=== PATIENT | male | born 1980 | race Caucasian/White ===

== ENCOUNTER 2018-06-15 09:34 | Emergency (ER) | payer BC ==
--- NOTE | 2018-06-15 09:44 | PDOC ---
Attending Attestation - Resident Resident Name: KristenAleksandra - ED Attending Attestation I have performed the following: I have examined & evaluated the patient, The case was reviewed & discussed with the resident, I agree w/resident's findings & plan, Exceptions are as noted - HPI HPI: 06/15/18 10:47 Nausea vomiting and diarrhea since 5 AM. Multiple episodes of each. No hematemesis Janneth bloody stool. Intermittent mild abdominal cramping. History of mild IBS on no medication. No abdominal surgery or other GI disease. Has an infant daughter at home with a GI illness. 06/15/18 10:48 - Physicial Exam PE: 06/15/18 10:47 Physical exam: Normal vital signs. Abdomen soft nontender without mass or organomegaly. Skin turgor is good and mucous membranes are wet. Remainder of exam normal - Medical Decision Making 06/15/18 10:48 Assessment: Mild gastroenteritis, probably viral Plan: Routine labs and hydration. Antiemetic. Observation and further treatment depending on results. 06/15/18 11:26 Laboratories reviewed: WBC 12.5 with a left shift. Remainder of CBC, as well as chemistries without significant abnormalities. Patient improved with hydration, antiemetic. No further vomiting or diarrhea. Symptomatic treatment and follow-up if symptoms persist. Fully ambulatory and in no significant distress upon discharge to follow-up as directed
[2018-06-15] MEDS ORDERED: ONDANSETRON 4 MG/2 ML VIAL IVPUSH ONE (09:45)
[2018-06-15] MEDS ORDERED: SODIUM CHLORIDE 1,000 ML IV STA ×2 (09:45→10:49)
[2018-06-15 09:53] VITALS: TEMP 97.9; BMI 26.6
[2018-06-15] MEDS ORDERED: ONDANSETRON 4 MG/2 ML VIAL ONE (10:12)
[2018-06-15 10:20] LABS: HEMATOCRIT 47.5 % (35.4-49); HEMOGLOBIN 16.4 GM/dl (11.7-16.9); MCH 32.6 pg (25.7-33.7); MCHC 34.6 g/dl (32.0-35.9); MEAN CELL VOLUME 94.3 fl (80-96); MEAN PLT VOLUME 7.7 fl (7.5-11.1); PLATELET COUNT 327 K/MM3 (134-434); RBC 5.03 M/mm3 (4.00-5.60); WHITE BLOOD COUNT 12.5 K/mm3 (4.0-10.8)
--- NOTE | 2018-06-15 10:22 | PDOC ---
History of Present Illness - General Chief Complaint: Vomiting/Diarrhea Stated Complaint: VOMITING AND DIARRHEA Time Seen by Provider: 06/15/18 09:44 History Source: Patient Exam Limitations: No Limitations - History of Present Illness Initial Comments: Pt is a 37 yo M, with PMH of IBS, who is presenting with loose brown stool (non- bloody), subjective chills, and 1 episode of NBNB vomiting since 5 am this morning. It has been associated with a crampy abdominal pain, which is not relieved by the passing of BM. Pt states his daughter (10 mos) has also been sick, with frequent "spitting up" and loose stools. Pt denies any fevers, headache, vision changes, chest pain, palpitations, SOB, urinary symptoms, or joint/leg swelling. Pt denies any recent travel or consuming new/raw foods. Pt admits to drinking at least 1 beer per day. Denies cigarettes or drug use. 06/15/18 11:02 Past History - Travel Traveled outside of the country in the last 30 days: No Close contact w/someone who was outside of country & ill: No - Past Medical History Allergies/Adverse Reactions: Allergies Allergy/AdvReac Type Severity Reaction Status Date / Time cefaclor [From Ceclor] Allergy Intermediate Hives Verified 06/15/18 09:44 Penicillins Allergy Intermediate Hives Verified 06/15/18 09:42 Quinolones Allergy Intermediate Hives Verified 06/15/18 09:42 sulfamethoxazole Allergy Intermediate Hives Verified 06/15/18 09:43 [From Bactrim] trimethoprim [From Bactrim] Allergy Intermediate Hives Verified 06/15/18 09:43 Home Medications: Ambulatory Orders Cetirizine HCl [Zyrtec -] 1 tab PO DAILY 06/15/18 Diabetes: No GI Disorders: Yes (IBS) HTN: No Hypercholesterolemia: No - Surgical History Abdominal Surgery: No Review of Systems - Review of Systems Able to Perform ROS?: Yes Is the patient limited Mauritian proficient: No Constitutional: Yes: Chills, Loss of Appetite, Weight Stable. No: Diaphoresis, Fever, Night Sweats, Weakness HEENTM: No: Blurred Vision, Double Vision, Nose Congestion, Hearing Loss, Throat Pain, Throat Swelling, Difficulty Swallowing Respiratory: No: Cough, Orthopnea, Shortness of Breath Cardiac (ROS): No: Chest Pain, Edema, Irregular Heart Rate, Lightheadedness, Palpitations, Syncope, Chest Tightness ABD/GI: Yes: Diarrhea, Nausea, Poor Appetite, Poor Fluid Intake, Vomiting, Abdominal cramping. No: Abdominal Distended, Blood Streaked Bowels, Constipated , Difficulty Swallowing, Rectal Bleeding, Indigestion : No: Burning, Dysuria, Frequency, Hematuria, Pain, Urgency Musculoskeletal: No: Back Pain, Joint Pain, Muscle Pain Integumentary: No: Rash Neurological: No: Headache, Numbness, Seizure, Weakness, Unsteady Gait, Ataxia, Dizziness Psychiatric: No: Sleep Pattern Change, Change in Appetite Endocrine: No: Increased Urine, Change in Weight Hematologic/Lymphatic: No: Anemia, Blood Clots, Easy Bleeding, Easy Bruising All Other Systems: Reviewed and Negative *Physical Exam - Physical Exam General Appearance: Yes: Nourished, Appropriately Dressed, Mild Distress ( Appears uncomfortable, but vitals stable, afebrile) HEENT: positive: EOMI, ZEFERINO, Normal ENT Inspection, Normal Voice, Pharynx Normal , Hearing Grossly Normal. negative: Scleral Icterus (R), Scleral Icterus (L), Pharyngeal Erythema, Tonsillar Exudate, Tonsillar Erythema, Nasal Congestion, Rhinorrhea, Sinus Tenderness, Lesions Neck: positive: Trachea midline, Supple. negative: Tender, Rigid, Lymphadenopathy (R), Lymphadenopathy (L), Rigidity Respiratory/Chest: positive: Lungs Clear, Normal Breath Sounds. negative: Chest Tender, Respiratory Distress, Accessory Muscle Use, Crackles, Wheezing Cardiovascular: positive: Regular Rhythm, Regular Rate, S1, S2. negative: Edema , JVD, Murmur Vascular Pulses: Carotid (R): 4+, Carotid (L): 4+ Gastrointestinal/Abdominal: positive: Normal Bowel Sounds, Flat, Soft. negative : Tender, Organomegaly, Pulsatile Mass, Distended, Guarding, Rebound, Tenderness Rectal Exam: positive: deferred Lymphatic: negative: Adenopathy, Tenderness Musculoskeletal: positive: Normal Inspection. negative: CVA Tenderness Extremity: positive: Normal Capillary Refill, Normal Inspection, Normal Range of Motion, Pelvis Stable. negative: Tender, Delayed Capillary Refill, Pedal Edema Integumentary: positive: Normal Color, Dry, Warm, Moist (no decreased skin turgor). 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 Jean. Pt presenting with loose brown stool (non-bloody) and 1 episode of NBNB vomiting since 5 am this morning. Pt states his daughter (10 mos) has also been sick, with frequent "spitting up" and loose stools. Pt admits to drinking at least 1 beer per day. PE showed stable vitals, afebrile, NAD. No abdominal tenderness to palpation, no rebound, no guarding. Considering viral gastroenteritis vs food poisoning (toxic enteritis) vs appendicitis vs pancreatitis Ordered work-up including CBC, CMP, lipase. Provided 1L NS and 4 mg IV zofran for nausea and dehydration. Will continue to reassess pt and monitor for symptomatic improvement. 06/15/18 09:50 Providing additional 1L NS for dehydration, but pt states starting to feel better. CBC: WBC 12.5, neutrophilic predominance 95%. CMP WNL. 06/15/18 10:59 Provided 20 mg IV pepcid for "stomach burning". Pt improved after interventions and was able to tolerate small fluid challenge in the department. Pt stating feeling much better and is ambulatory. Pt can be discharged to home with follow-up. Pt advised to follow-up with PCP in 1-2 days. Strict return precautions provided with pt understanding. 06/15/18 12:10 *DC/Admit/Observation/Transfer Diagnosis at time of Disposition: Gastroenteritis, Vomiting and diarrhea - Discharge Dispostion Disposition: HOME Condition at time of disposition: Improved Decision to Admit order: No - Referrals Referrals: Fei Barreto [Primary Care Provider] - - Patient Instructions Printed Discharge Instructions: DI for Viral Gastroenteritis -- Adult Additional Instructions: You were seen in the ER today for vomiting and diarrhea. The results of your labs and imaging today showed a mild infection (WBC 12.5), but there is no urgent need for imaging at this time. Please follow-up with your primary care doctor within 1-2 days to discuss your visit and make sure your symptoms have improved. Please return to the ER if you have any worsening pain, development of fevers or chills, loss of consciousness, inability to tolerate food or fluids , or any other concerns. Please continue with a bland diet (gatorade, pedialyte, soup) and frequent hand washing until your symptoms have improved and you can handle solid foods. - Post Discharge Activity
[2018-06-15 10:33] LABS: ALBUMIN 5.1 g/dl (3.5-5.0); ALK PHOS 74 U/L (32-92); ANION GAP 9 MMOL/L (8-16); BILIRUBIN,TOTAL 0.9 mg/dl (0.2-1.0); BLOOD UREA NITROGEN 17 mg/dl (7-18); CALCIUM 9.9 mg/dl (8.4-10.2); CHLORIDE 104 mmol/L (98-107); CO2 25 mmol/L (22-28); CREATININE 0.9 mg/dl (0.6-1.3); GLUCOSE,RANDOM 139 mg/dl (74-106); POTASSIUM 4.1 mmol/L (3.5-5.1); SGOT/AST 26 U/L (10-42); SGPT/ALT 26 U/L (10-40); SODIUM 138 mmol/L (136-145); TOT PROT 8.7 g/dl (6.4-8.3)
[2018-06-15 10:51] LABS: PLATELET ESTIMATE ADEQUATE
[2018-06-15] MEDS ORDERED: FAMOTIDINE 20 MG/50 ML IVPB 20 MG/50 ML MG IVPB ONE ×2 (11:32→11:35)
[2018-06-15 12:15] VITALS: BP 125/74; PULSE 96
[2018-06-15 12:27] LABS: LIPASE 120 U/L (73-393)
== END 2018-06-15 12:19 | disposition home or self-care (01) ==
LOC: FER 09:34
PROC: 3E033GC Introduction of Other Therapeutic Substance into Peripheral Vein, Percutaneous Approach (ICD-10-PCS; principal; 2018-06-15)
PROC: 3E0337Z Introduction of Electrolytic and Water Balance Substance into Peripheral Vein, Percutaneous Approach (ICD-10-PCS; 2018-06-15)
DX: K52.9 Noninfective gastroenteritis and colitis, unspecified (principal); R19.7 Diarrhea, unspecified; R11.10 Vomiting, unspecified
CPT/HCPCS: 36415; 80053; 83690; 85025; 99282-25; J7030

== ENCOUNTER 2023-04-02 19:06 | Emergency (ER) | payer BC ==
[2023-04-02 19:20] VITALS: BP 136/94; PULSE 85; RESP 20; TEMP 98.9; BMI 27.4
== END 2023-04-02 20:11 | disposition home or self-care (01) ==
LOC: FER 19:06
DX: R05.9 Cough, unspecified (principal); J06.9 Acute upper respiratory infection, unspecified; Z20.822 Contact with and (suspected) exposure to COVID-19
CPT/HCPCS: 0241U-QW; 71046-TC-FY; 99284-25